=== PATIENT | female | born 1970 ===

== ENCOUNTER 2021-06-30 12:33 | Emergency (ER) | payer OTHER ==
[~2021-06-30] VITALS: Ht 157.5 cm; Wt 77.1 kg
[2021-06-30 14:02] VITALS: BP 132/69
== END 2021-06-30 14:14 | disposition home or self-care (01) ==
LOC: ER 12:36
DX: S00.83XA Contusion of other part of head, initial encounter (principal); S20.222A Contusion of left back wall of thorax, initial encounter; Y04.2XXA Assault by strike against or bumped into by another person, initial encounter; Y93.89 Activity, other specified; Y92.89 Other specified places as the place of occurrence of the external cause; Y99.8 Other external cause status